=== PATIENT | male | born 1950 | race Caucasian/White ===

== ENCOUNTER → 2024-06-15 15:28 | Outpatient (REF) | payer OTHER, SELFPAY | LOC: RAD 15:28 | PROVIDERS: ATTENDING PHYSICIAN Internal Medicine Rheumatology; FAMILY PHYSICIAN Family Medicine | DX: M19.90 Unspecified osteoarthritis, unspecified site (principal); M79.641 Pain in right hand; M79.642 Pain in left hand; R79.89 Other specified abnormal findings of blood chemistry | CPT/HCPCS: 73130 ==

== ENCOUNTER → 2025-05-15 08:09 | Outpatient (REF) | payer OTHER, SELFPAY | LOC: PAVMRI 08:09 | PROVIDERS: ATTENDING PHYSICIAN Otolaryngology; FAMILY PHYSICIAN Family Medicine | DX: H90.A21 Sensorineural hearing loss, unilateral, right ear, with restricted hearing on the contralateral side (principal) | CPT/HCPCS: 70553; A9575 ==